=== PATIENT | female | born 1990 | race Caucasian/White ===

== ENCOUNTER 2021-05-23 19:58 | Emergency (ER) | payer OTHER ==
[~2021-05-23] VITALS: Ht 157.5 cm; Wt 61.0 kg
[2021-05-23] MEDS ORDERED: ACETAMINOPHEN 325MG TABLET PO ONE (21:45)
[2021-05-23] MEDS ORDERED: TETANUS, DIPHTHERIA, PERTUSSIS VAC/PF 0.5ML (>10YR OLD) IM ONE (21:45)
[2021-05-23] MEDS ORDERED: IBUPROFEN 400MG TABLET PO ONE (21:45)
[2021-05-23] MEDS ORDERED: LIDOCAINE HCL/EPINEPHRINE 1%-EPI 1:100,000 50 ML VIAL INFIL ONE (21:45)
[2021-05-23] MEDS ORDERED: BACITRACIN ZINC OINT UDPKT TOP ONE (23:15)
[2021-05-23 23:26] VITALS: BP 116/68
== END 2021-05-23 23:27 | disposition home or self-care (01) ==
LOC: ER 19:58
DX: S51.811A Laceration without foreign body of right forearm, initial encounter (principal); W25.XXXA Contact with sharp glass, initial encounter; Y93.89 Activity, other specified; Y92.9 Unspecified place or not applicable; M79.642 Pain in left hand
CPT/HCPCS: 12002; 73090; 73130; 90471; 90715; 99284

== ENCOUNTER 2021-05-27 00:35 | Emergency (ER) | payer OTHER | END 2021-05-27 02:23 | disposition left against medical advice (07) | LOC: ER 00:35 | DX: Z53.21 Procedure and treatment not carried out due to patient leaving prior to being seen by health care provider (principal) ==

== ENCOUNTER 2021-06-02 14:45 | Emergency (ER) | payer MEDICAID, OTHER ==
[~2021-06-02] VITALS: Ht 157.5 cm; Wt 61.0 kg
[2021-06-02 15:05] VITALS: BP 105/65
== END 2021-06-02 16:55 | disposition home or self-care (01) ==
LOC: ER 14:56
DX: S51.811D Laceration without foreign body of right forearm, subsequent encounter (principal); X58.XXXD Exposure to other specified factors, subsequent encounter
CPT/HCPCS: 99281

== ENCOUNTER 2021-06-08 15:35 | Emergency (ER) | payer MEDICAID, OTHER ==
[~2021-06-08] VITALS: Ht 157.5 cm; Wt 65.0 kg
[2021-06-08 15:54] VITALS: BP 112/75
== END 2021-06-08 16:40 | disposition home or self-care (01) ==
LOC: ER 15:58
DX: Z48.00 Encounter for change or removal of nonsurgical wound dressing (principal)
CPT/HCPCS: 99281

== ENCOUNTER 2021-08-06 14:48 | Emergency (ER) | payer OTHER ==
[~2021-08-06] VITALS: Ht 162.6 cm; Wt 61.0 kg
[2021-08-06] MEDS ORDERED: IBUPROFEN 400MG TABLET PO ONE (15:30)
[2021-08-06 17:59] VITALS: BP 106/62
== END 2021-08-06 17:59 | disposition home or self-care (01) ==
LOC: ER 14:48
DX: M79.631 Pain in right forearm (principal)
CPT/HCPCS: 29125; 73090; 81025; 99283